=== PATIENT | female | born 1950 | race Caucasian/White ===

== ENCOUNTER 2024-12-02 11:05 | Day surgery (SDC) | payer MEDICARE ==
[~2024-12-02] VITALS: Ht 177.8 cm; Wt 90.9 kg
[~2024-12-02 11:05] MED LIST: APIX5TAB3 PO; FLEC50TA PO; METO-411 PO; MULT-1085 PO; ROSU40TA89 PO; TRAM50TA2 PO
[2024-12-02 11:25] VITALS: BP 128/74; PULSE 60; RESP 14; TEMP 98.2; O2SAT 99
[2024-12-02] MEDS ORDERED: fentaNYL/PF 50MCG/1 ML 2ML syringe IV ONE (11:35)
[2024-12-02] MEDS ORDERED: MIDAZolam 1mg/ml 10ml vial IV ONE (11:35)
[2024-12-02] MEDS ORDERED: normal saline 1000ml 1,000 ML IV SCH (11:35)
--- NOTE | 2024-12-02 11:40 | ELECTROCARDIOGRAPH REPORT ---
[facility] Test Date: 2024-12-02 Test Time: 11:38:35 Pat Name: JEVON GOODSON Department: [facility] Patient ID: [facility]-[id number] Room: Gender: F [place]: Cindi Brenner : 1950 Requested By: NAYA PORTILLO Order Number: [id number] Reading MD: Dr. 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 Alek Woodward Please click the below link to view image of tracing.
[2024-12-02] MEDS ORDERED: FURO40TA4 PO (11:50)
[2024-12-02] MEDS ORDERED: POTA-206 PO (11:50)
[2024-12-02] MEDS ORDERED: ASPI-611 PO (11:50)
[2024-12-02 12:26] LABS: ALBUMIN 3.3 G/DL (3.4-5.0); ANION GAP 9 (8-16); BLOOD UREA NITROGEN 15 MG/DL (7-18); BUN/CREATININE RATIO 14.9 (10.0-20.0); CALCIUM 9.3 MG/DL (8.5-10.1); CHLORIDE 104 MMOL/L (99-107); CREATININE 1.01 MG/DL (0.40-0.90); GLUCOSE 102 MG/DL (70-104); MAGNESIUM 1.8 MG/DL (1.5-2.4); POTASSIUM 4.2 MMOL/L (3.5-5.1); SODIUM 141 MMOL/L (135-145); TOTAL CARBON DIOXIDE 28.4 MMOL/L (24-32); eCRCL 53 ML/MIN; eGFR 54 ML/MIN
[2024-12-02 12:29] LABS: INR 1.1 INR; PROTHROMBIN TIME 11.5 SECONDS (9.0-12.0)
[2024-12-02] MEDS ORDERED: midazolam 1 mg/ML 2ml injection ONE ×4 (12:31→13:05)
[2024-12-02] MEDS ORDERED: fentaNYL/PF 50MCG/1 ML 2ML syringe ONE (12:31)
[2024-12-02 12:32] LABS: BASOPHILS # (AUTO) 0.1 X10'3 (0-0.2); BASOPHILS % (AUTO) 1.3 % (0-1); EOSINOPHILS % (AUTO) 12.9 % (0-6); HEMATOCRIT 33.1 % (35.0-45.0); HEMOGLOBIN 10.5 g/dl (12.0-16.0); LYMPHOCYTES # (AUTO) 1.3 X10'3 (1.1-4.8); LYMPHOCYTES % (AUTO) 17.1 % (21-51); MEAN CORPUSCULAR HEMOGLOBIN 27.6 PG (27.0-31.0); MEAN CORPUSCULAR HGB CONC 31.8 g/dL (33.0-36.5); MEAN CORPUSCULAR VOLUME 86.7 FL (78-98); MEAN PLATELET VOLUME 7.8 FL (7.4-10.4); MONOCYTES # (AUTO) 0.8 X10'3 (0-0.9); MONOCYTES % (AUTO) 10.9 % (2-12); NEUTROPHILS # (AUTO) 4.4 X10'3 (1.8-7.7); NEUTROPHILS % (AUTO) 57.8 % (42-75); PLATELET COUNT 374 X10'3 (140-440); RED BLOOD COUNT 3.81 X10'6 (4.20-5.60); RED CELL DISTRIBUTION WIDTH 17.9 % (11.5-14.5); WHITE BLOOD COUNT 7.6 X10'3 (4.5-11.0)
[2024-12-02] MEDS ORDERED: diphenhydrAMINE 50 mg/ml inj ONE (12:32)
[2024-12-02] MEDS ORDERED: metoprolol tartrate 1mg/ml inj IV ONE (13:12)
[2024-12-02 13:30] VITALS: BP 149/84; PULSE 84; RESP 14; O2SAT 100
[2024-12-02 13:45] VITALS: BP 164/82; PULSE 84; RESP 15; O2SAT 100
--- NOTE | 2024-12-02 13:55 | ELECTROCARDIOGRAPH REPORT ---
[facility] Test Date: 2024-12-02 Test Time: 13:53:28 Pat Name: JEVON GOODSON Department: [facility] Patient ID: [facility]-[id number] Room: Gender: F [employer]: EBONI : 1950 Requested By: NAYA PORTILLO Order Number: [id number] Reading MD: Dr. Alek Woodward Measurements Intervals [place] Rate: 84 P: 245 [place]: 58 QRS: 119 QRSD: 129 T: 24 QT: 422 QTc: 499 Interpretive Statements Atrial-sensed ventricular-paced rhythm No further analysis attempted due to paced rhythm Electronically Signed On 12-04-2024 13:10:[address] Alek Woodward Please click the below link to view image of tracing.
[2024-12-02 14:00] VITALS: BP 165/78; PULSE 85; RESP 15; O2SAT 100
[2024-12-02] MEDS ORDERED: METO-395 PO (14:06)
[2024-12-02 14:15] VITALS: BP 160/76; PULSE 85; RESP 15; O2SAT 96
[2024-12-02 14:30] VITALS: BP 150/74; PULSE 84; RESP 15; O2SAT 98
--- NOTE | 2024-12-03 05:01 | CARDIOLOGY REPORT ---
DATE OF SERVICE: 12/02/2024 DICTATING PHYSICIAN: NAYA PORTILLO DO PROCEDURE: DC cardioversion. PREPROCEDURAL DIAGNOSIS: Atrial flutter. POSTPROCEDURAL DIAGNOSIS: Atrial flutter, cardioverted to sinus rhythm. DESCRIPTION OF PROCEDURE: The patient was sedated with fentanyl and Versed. She was then given one 200 joule shock resulting in reversion to sinus rhythm/sinus tachycardia. COMPLICATIONS: There were no complications. PLAN: Ongoing medical therapy. FINAL DIAGNOSIS: Atrial flutter, cardioversion, sinus tachycardia. Recommendation is ongoing medical therapy. NAYA PORTILLO DO TID: [id number] RECEIPT: [id number] HECTOR/JHONY
== END 2024-12-02 14:40 | disposition home or self-care (01) ==
LOC: SSTAY O 11:05
PROVIDERS: ATTEND Internal Medicine Cardiovascular Disease
DX: I48.0 Paroxysmal atrial fibrillation (principal); I48.3 Typical atrial flutter; I10 Essential (primary) hypertension; E78.5 Hyperlipidemia, unspecified; I44.2 Atrioventricular block, complete; G47.30 Sleep apnea, unspecified; Z85.3 Personal history of malignant neoplasm of breast; Z95.2 Presence of prosthetic heart valve; Z98.890 Other specified postprocedural states; Z79.82 Long term (current) use of aspirin; Z79.899 Other long term (current) drug therapy; Z88.0 Allergy status to penicillin; Z88.8 Allergy status to other drugs, medicaments and biological substances
CPT/HCPCS: 36415; 80048; 83735; 85025; 85610; 92960; 93005; J1200; J2250; J3010; J3490; J7030; 99152